=== PATIENT | male | born 1980 | race Caucasian/White ===

== ENCOUNTER 2020-09-17 10:27 | Emergency (ER) | payer SELFPAY ==
[~2020-09-17] VITALS: Ht 172.7 cm; Wt 75.0 kg
[2020-09-17] MEDS ORDERED: CITA10SO PO (10:34)
[2020-09-17 11:17] LABS: BASOPHILS % 0.4 % (0.0-2.0); EOSINOPHILS % 0.8 % (0.0-5.0); HEMATOCRIT. 42.4 % (42.0-52.0); HEMOGLOBIN. 14.6 g/dL (14.0-18.0); LYMPHOCYTES % 9.1 % (20.0-50.0); MEAN CORPUSCULAR HEMOGLOBIN 29.2 pg (28.0-32.0); MEAN CORPUSCULAR VOLUME 84.7 fL (80.0-94.0); MONOCYTES % 6.9 % (2.0-8.0); NEUTROPHILS % 82.8 % (40.0-76.0); PLATELET 309 x1000/uL (130-400); RED CELL DISTRIBUTION WIDTH 14.6 % (11.6-14.6)
[2020-09-17 11:23] LABS: CHLORIDE 105 mEq/L (98-107)
[2020-09-17 11:29] LABS: ETHANOL BLOOD < 10 mg/dL
[2020-09-17 11:33] LABS: CREATINE KINASE 194 IU/L (39-308)
[2020-09-17] MEDS ORDERED: SODIUM CHLORIDE 0.9% 1,000 ML IV ONE (11:45)
[2020-09-17 12:51] LABS: CLARITY URINE CLEAR (CLEAR); COLOR URINE YELLOW (YELLOW); KETONES URINE TRACE (NEGATIVE); LEUKOCYTE ESTERASE URINE NEGATIVE (NEGATIVE); NITRITE URINE NEGATIVE (NEGATIVE); OCCULT BLOOD URINE NEGATIVE (NEGATIVE); PH URINE 5.5 (4.5-8.0); PROTEIN URINE 1+ (NEGATIVE); SPECIFIC GRAVITY URINE 1.031 (1.005-1.030)
[2020-09-17 13:18] LABS: *COCAINE SCREEN URINE NEGATIVE (NEGATIVE); METHADONE URINE SCREEN NEGATIVE (NEGATIVE)
[2020-09-17 13:19] LABS: CANNABINOID URINE SCREEN NEGATIVE (NEGATIVE); OPIATES URINE SCREEN NEGATIVE (NEGATIVE); PHENCYCLIDINE URINE SCREEN NEGATIVE (NEGATIVE)
[2020-09-17 13:21] LABS: *BARBITURATES SCREEN URINE NEGATIVE (NEGATIVE)
[2020-09-17 13:25] LABS: *BENZODIAZEPINES SCREEN URINE PRESUMTIVE POSITIVE (NEGATIVE)
[2020-09-17 13:27] LABS: *AMPHETAMINES SCREEN URINE PRESUMTIVE POSITIVE (NEGATIVE)
[2020-09-17 14:39] VITALS: BP 130/89
== END 2020-09-17 14:46 | disposition home or self-care (01) ==
LOC: ER 10:27
DX: F15.10 Other stimulant abuse, uncomplicated (principal); R45.1 Restlessness and agitation
CPT/HCPCS: 36415; 80053; 80305; 80307; 80320; 80329; 81003; 82140; 82550; 84443; 85025; 99283; J7030; Z7610; G0480